=== PATIENT | male | born 1965 | race Caucasian/White ===

== ENCOUNTER 2017-07-15 14:26 | Outpatient (CLI) | payer OTHER | END 2017-07-15 15:00 | disposition home or self-care (01) | LOC: MRI 14:26 | DX: M54.17 Radiculopathy, lumbosacral region (principal); G89.4 Chronic pain syndrome | CPT/HCPCS: 72148 ==

== ENCOUNTER 2018-09-26 09:19 | Outpatient (CLI) | payer OTHER | END 2018-09-26 09:34 | disposition home or self-care (01) | LOC: MRI 09:19 | DX: M47.812 Spondylosis without myelopathy or radiculopathy, cervical region (principal) | CPT/HCPCS: 72141 ==

== ENCOUNTER 2019-01-26 08:57 | Outpatient (CLI) | payer OTHER | END 2019-01-26 09:03 | disposition home or self-care (01) | LOC: RAD 08:57 | DX: M25.552 Pain in left hip (principal) ==

== ENCOUNTER 2021-09-16 10:16 | Outpatient (CLI) | payer OTHER | END 2021-09-16 10:17 | disposition home or self-care (01) | LOC: RAD 10:16 | DX: M75.90 Shoulder lesion, unspecified, unspecified shoulder (principal); M75.20 Bicipital tendinitis, unspecified shoulder; M75.30 Calcific tendinitis of unspecified shoulder; M75.40 Impingement syndrome of unspecified shoulder ==